=== PATIENT | female | born 2000 | race Caucasian/White ===

== ENCOUNTER → 2021-03-26 | Outpatient (CLI) | payer BC, OTHER ==
[~2021-03-26] MED LIST: FERROUS SULFAT325 M1 PO; IBUPROFEN600 MG PO; NORCO 5-325 TA1 EACH PO
== END ==
LOC: RAD 10:12
DX: R06.02 Shortness of breath (principal)
CPT/HCPCS: 71046

== ENCOUNTER → 2021-04-28 | Outpatient (CLI) | payer BC, OTHER | LOC: HEART 5 09:02 | DX: R06.02 Shortness of breath (principal) | CPT/HCPCS: 94060 ==

== ENCOUNTER → 2021-08-05 | Outpatient (CLI) | payer BC, OTHER | LOC: KOH-I 08-04 13:30 | DX: E04.9 Nontoxic goiter, unspecified (principal) | CPT/HCPCS: 76536 ==

== ENCOUNTER → 2022-01-12 | Outpatient (CLI) | payer BC, OTHER | LOC: MRI 12-31 13:45 | DX: H47.10 Unspecified papilledema (principal) | CPT/HCPCS: 70543; 70553; A9577 ==